=== PATIENT | male | born 1950 | race Caucasian/White ===

== ENCOUNTER 2016-10-31 00:53 | Emergency (ER) | payer MEDICARE, OTHER ==
[~2016-10-31] VITALS: Ht 188 cm; Wt 79.5 kg
[~2016-10-31 00:53] MED LIST: CALC-723 PO; CYCL10TA45 PO; FOLI1TAB6 PO; HYDR-3702 PO; INDA1.25 PO; LSNP10T PO; MECL25TA3 PO; OMEP20CA6 PO; ROSU10TA PO; TAMS0.4C2 PO
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
--- OUTSIDE RECORDS SUMMARY | 2016-10-31 01:00 | XMS REPORT | Continuity of Care Document ---
Author Author [facility] Address Unknown Phone Unavailable Allergies Active Description Code Type Severity Reaction Onset Reported/Identified Relationship to Patient Clinical Status Yes No Known Allergies 046557 3 N/A N/A Yes No Known Drug Allergies [id number] Drug Allergy Unknown N/ A 06/02/2012 Medications [...] S89.91XA Right knee injury, initial encounter 10/22/2015 Cahrles Gunn MD Ot E78.5 HYPERLIPIDEMIA, UNSPECIFIED 10/22/2015 [...] Procedures Code Description [place] [address] OFFICE/OUTPATIENT VISIT NEW 07/22/2015 56125 OFFICE/OUTPATIENT VISIT EST 09/10/2015 Results Encounters ACCT No. Visit Date/Time Discharge Status Pt. Type Provider Facility Loc./Unit Complaint [id number] 10/05/2015 07:30:00 2015 08:40:00 DIS Outpatient JACOB OWUSU, [facility] PT NEW/R KNEE PAIN [id number] 06/30/2015 14:26:00 2014 15:59:00 DIS Emergency BECKY OWUSU, [facility] ED [id number] 09/23/2015 08:34:00 ACT Outpatient Luis A OWUSU, [facility] RAD [id number] 06/10/2012 12:30:00 Document Registration [id number] 06/02/2012 08:04:00 Document Registration
[2016-10-31] MEDS ORDERED: ED- HYDROcodone/ACETAMINOPHEN 5MG/325MG (NORCO) 6 TABLETS/BTL PO ONE (02:00)
[2016-10-31] MEDS ORDERED: HYDR-3702 PO (02:02)
[2016-10-31 02:10] VITALS: BP 131/82
--- NOTE | 2016-10-31 09:58 | Diagnostic Imaging Report ---
INDICATION: Fell, pain mainly posterior ribs FINDINGS: Frontal view of the chest and 3 additional views of the ribs demonstrate lungs to be clear. The heart, mediastinum, and pulmonary vascularity are normal. No pneumothorax or pleural effusion present. There is a nondisplaced left eighth rib fracture. IMPRESSION: There is a nondisplaced left eighth rib fracture. Dictated by: Dictated on workstation # [id number]
== END 2016-10-31 02:08 | disposition home or self-care (01) ==
LOC: ED 00:55
DX: S22.32XA Fracture of one rib, left side, initial encounter for closed fracture (principal); W18.30XA Fall on same level, unspecified, initial encounter; Y93.89 Activity, other specified; Y92.009 Unspecified place in unspecified non-institutional (private) residence as the place of occurrence of the external cause
CPT/HCPCS: 71101; 99282; A9270